=== PATIENT | male | born 1965 | race African-American/Black ===

== ENCOUNTER 2017-03-25 12:04 | Emergency (ER) | payer MEDICAID ==
[~2017-03-25] VITALS: Ht 167.6 cm; Wt 65.0 kg
[2017-03-25 13:45] VITALS: BP 154/89
== END 2017-03-25 13:53 | disposition home or self-care (01) ==
LOC: ER 12:06
DX: R53.1 Weakness (principal); F32.9 Major depressive disorder, single episode, unspecified
CPT/HCPCS: 99283

== ENCOUNTER 2017-07-11 03:28 | Emergency (ER) | payer MEDICAID ==
[~2017-07-11] VITALS: Ht 157.5 cm; Wt 54.0 kg
[2017-07-11 05:04] VITALS: BP 135/71
== END 2017-07-11 05:15 | disposition home or self-care (01) ==
LOC: ER 03:34
DX: T51.91XA Toxic effect of unspecified alcohol, accidental (unintentional), initial encounter (principal); F31.9 Bipolar disorder, unspecified; Y92.89 Other specified places as the place of occurrence of the external cause
CPT/HCPCS: 99283; J7030; Z7610

== ENCOUNTER 2018-03-24 07:12 | Emergency (ER) | payer MEDICAID ==
[~2018-03-24] VITALS: Ht 157.5 cm; Wt 55.0 kg
[2018-03-24] MEDS ORDERED: MORPHINE SULFATE 10 MG/ML CPJ IM ONE (09:30)
[2018-03-24] MEDS ORDERED: ONDANSETRON 4MG ODT PO ONE (09:30)
[2018-03-24] MEDS ORDERED: BACITRACIN ZINC OINT UDPKT TOP ONE (09:30)
[2018-03-24 12:06] VITALS: BP 158/92
[2018-03-24] MEDS ORDERED: ACETAMINOPHEN 500MG TABLET PO ONE (12:15)
== END 2018-03-24 12:17 | disposition home or self-care (01) ==
LOC: ER 11:20
DX: S80.212A Abrasion, left knee, initial encounter (principal); F17.200 Nicotine dependence, unspecified, uncomplicated; F31.9 Bipolar disorder, unspecified; F12.10 Cannabis abuse, uncomplicated; W18.39XA Other fall on same level, initial encounter; Y93.89 Activity, other specified; Y92.89 Other specified places as the place of occurrence of the external cause; Y99.8 Other external cause status; Z98.890 Other specified postprocedural states
CPT/HCPCS: 73562; 96372; 99284; J2270; Q0162

== ENCOUNTER 2019-06-15 20:20 | Emergency (ER) | payer MEDICAID ==
[~2019-06-15] VITALS: Ht 175.3 cm; Wt 65.0 kg
[2019-06-15 23:27] VITALS: BP 112/79
== END 2019-06-15 23:28 | disposition home or self-care (01) ==
LOC: ER 20:20
DX: R05 Cough (principal); R09.81 Nasal congestion; F12.10 Cannabis abuse, uncomplicated; Z98.890 Other specified postprocedural states
CPT/HCPCS: 71045; 99283

== ENCOUNTER 2019-10-28 19:34 | Emergency (ER) | payer MEDICAID ==
[~2019-10-28] VITALS: Ht 157.5 cm; Wt 55.0 kg
[2019-10-28] MEDS ORDERED: HYDROCODONE/ACETAMINOPHEN 5/325MG TABLET PO ONE (22:00)
[2019-10-28 23:59] VITALS: BP 141/84
== END 2019-10-29 00:06 | disposition home or self-care (01) ==
LOC: ER 19:34
DX: S01.511A Laceration without foreign body of lip, initial encounter (principal); F12.10 Cannabis abuse, uncomplicated; X58.XXXA Exposure to other specified factors, initial encounter; Y93.89 Activity, other specified; Y92.89 Other specified places as the place of occurrence of the external cause; Y99.8 Other external cause status
CPT/HCPCS: 70486; 73130; 99285

== ENCOUNTER 2019-11-20 14:40 | Inpatient (IN) | payer MEDICAID ==
[~2019-11-20] VITALS: Ht 157.5 cm; Wt 54.0 kg
[2019-11-20] MEDS ORDERED: ONDANSETRON HCL 4MG/2ML INJ IV STA (14:59)
[2019-11-20] MEDS ORDERED: MORPHINE SULFATE 4 MG/ML CPJ (NOT FOR IM USE) IV STA (14:59)
[2019-11-20] MEDS ORDERED: SODIUM CHLORIDE 0.9% 1,000 ML IV ONE (14:59)
[2019-11-20] MEDS ORDERED: TETANUS, DIPHTHERIA, PERTUSSIS VAC/PF 0.5ML (>7YR OLD) IM ONE (15:00)
[2019-11-20] MEDS ORDERED: ETOMIDATE 2MG/ML 10ML VIAL IV ONE (15:45)
[2019-11-20 15:59] LABS: BASOPHILS % 0.3 % (0.0-2.0); EOSINOPHILS % 3.3 % (0.0-5.0); HEMATOCRIT. 35.1 % (42.0-52.0); HEMOGLOBIN. 12.4 g/dL (14.0-18.0); LYMPHOCYTES % 20.3 % (20.0-50.0); MEAN CORPUSCULAR HEMOGLOBIN 35.6 pg (28.0-32.0); MEAN CORPUSCULAR VOLUME 100.8 fL (80.0-94.0); MEAN PLATELET VOLUME 7.3 fl (7.4-10.4); NEUTROPHILS % 65.1 % (40.0-76.0); PLATELET 299 x1000/uL (130-400); RED BLOOD CELL COUNT 3.48 mill/uL (4.7-6.1); RED CELL DISTRIBUTION WIDTH 15.2 % (11.6-14.6)
[2019-11-20 16:04] LABS: CHLORIDE 106 mEq/L (98-107)
[2019-11-20 16:08] LABS: INR 1.1; PARTIAL THROMBOPLASTIN TIME 25.9 sec (23.4-31.0); PROTHROMBIN TIME 11.1 sec (9.6-11.0)
[2019-11-20] MEDS ORDERED: MORPHINE SULFATE 4 MG/ML CPJ (NOT FOR IM USE) IV ONE (18:00)
[2019-11-20] MEDS ORDERED: CLONIDINE 0.1MG TABLET PO PRN (18:15)
[2019-11-20] MEDS ORDERED: ONDANSETRON HCL 4MG/2ML INJ IV PRN (18:15)
[2019-11-20] MEDS ORDERED: ZOLPIDEM TARTRATE 5MG TABLET PO PRN (18:15)
[2019-11-20] MEDS: AMLODIPINE 5MG TABLET PO SCH (21:20)
[2019-11-21 00:21] LABS: *AMPHETAMINES SCREEN URINE NEGATIVE (NEGATIVE); *BARBITURATES SCREEN URINE NEGATIVE (NEGATIVE); *BENZODIAZEPINES SCREEN URINE NEGATIVE (NEGATIVE); *COCAINE SCREEN URINE PRESUMTIVE POSITIVE (NEGATIVE)
[2019-11-21 00:22] LABS: CANNABINOID URINE SCREEN PRESUMTIVE POSITIVE (NEGATIVE); METHADONE URINE SCREEN NEGATIVE (NEGATIVE); OPIATES URINE SCREEN PRESUMTIVE POSITIVE (NEGATIVE); PHENCYCLIDINE URINE SCREEN PRESUMTIVE POSITIVE (NEGATIVE)
[2019-11-21] MEDS: MORPHINE SULFATE 2 MG/ML CPJ (NOT FOR IM USE) IV PRN ×5 (02:26→21:05)
[2019-11-21 09:45] VITALS: BP 147/87
[2019-11-21] MEDS: AMLODIPINE 5MG TABLET PO SCH ×2 (10:53→21:07)
[2019-11-21] MEDS ORDERED: IBUP-2029 PO (10:54)
[2019-11-21 12:00] VITALS: BP 150/93
[2019-11-21] MEDS: LISINOPRIL 5MG TABLET PO SCH (14:23)
[2019-11-21 16:00] VITALS: BP 134/83
[2019-11-21 18:35] VITALS: BP 126/74
[2019-11-21 20:00] VITALS: BP 130/83
[2019-11-21] MEDS ORDERED: ENOXAPARIN 40MG/0.4ML SYR SUBCUT SCH (20:00)
[2019-11-22] VITALS: BP 130/82
[2019-11-22] MEDS: MORPHINE SULFATE 2 MG/ML CPJ (NOT FOR IM USE) IV PRN ×2 (01:20→20:57)
[2019-11-22 04:00] VITALS: BP 107/66
[2019-11-22 08:00] VITALS: BP 134/85
[2019-11-22] MEDS: LISINOPRIL 5MG TABLET PO SCH (09:04)
[2019-11-22] MEDS: AMLODIPINE 5MG TABLET PO SCH ×2 (09:05→20:56)
[2019-11-22] MEDS: POLYETHYLENE GLYCOL 3350 (17GM) 1 DOSE PACK PO SCH (10:48)
[2019-11-22 12:00] VITALS: BP 133/87
[2019-11-22 16:00] VITALS: BP 117/80
[2019-11-22 20:00] VITALS: BP 139/79
[2019-11-23] VITALS: BP 118/76
[2019-11-23 04:00] VITALS: BP 120/74
[2019-11-23 06:48] LABS: HEMATOCRIT. 34.3 % (42.0-52.0); HEMOGLOBIN. 11.8 g/dL (14.0-18.0); MEAN CORPUSCULAR HEMOGLOBIN 34.1 pg (28.0-32.0); MEAN CORPUSCULAR VOLUME 99.1 fL (80.0-94.0); MEAN PLATELET VOLUME 7.1 fl (7.4-10.4); PLATELET 386 x1000/uL (130-400); RED BLOOD CELL COUNT 3.46 mill/uL (4.7-6.1); RED CELL DISTRIBUTION WIDTH 14.9 % (11.6-14.6)
[2019-11-23 07:18] LABS: CHLORIDE 99 mEq/L (98-107)
[2019-11-23 07:58] LABS: VITAMIN B12 SERUM 330 pg/mL (211-911)
[2019-11-23 08:00] VITALS: BP_SYST 129; BP_DIAS 68; BP_DIAS 86
[2019-11-23] MEDS: POLYETHYLENE GLYCOL 3350 (17GM) 1 DOSE PACK PO SCH (08:36)
[2019-11-23] MEDS: MORPHINE SULFATE 2 MG/ML CPJ (NOT FOR IM USE) IV PRN ×2 (08:37→18:43)
[2019-11-23] MEDS: LISINOPRIL 5MG TABLET PO SCH (08:41)
[2019-11-23] MEDS: AMLODIPINE 5MG TABLET PO SCH ×2 (08:41→20:39)
[2019-11-23 10:25] LABS: PLATELET ESTIMATE NORMAL
[2019-11-23 12:00] VITALS: BP 128/72
[2019-11-23 13:09] LABS: FOLIC ACID (FOLATE) SERUM 13.4 ng/mL (>5.38)
[2019-11-23] MEDS: CYANOCOBALAMIN 1000MCG/ML VIAL IM SCH (13:27)
[2019-11-23 16:00] VITALS: BP 128/82
[2019-11-23 20:00] VITALS: BP 113/77
[2019-11-24 08:00] VITALS: BP 105/72
[2019-11-24] MEDS: AMLODIPINE 5MG TABLET PO SCH ×2 (09:00→21:12)
[2019-11-24] MEDS: LISINOPRIL 5MG TABLET PO SCH (09:00)
[2019-11-24] MEDS: POLYETHYLENE GLYCOL 3350 (17GM) 1 DOSE PACK PO SCH (09:19)
[2019-11-24] MEDS: CYANOCOBALAMIN 1000MCG/ML VIAL IM SCH (09:19)
[2019-11-24] MEDS: MORPHINE SULFATE 2 MG/ML CPJ (NOT FOR IM USE) IV PRN (09:41)
[2019-11-24 16:00] VITALS: BP 133/80
[2019-11-24 20:00] VITALS: BP 137/78
[2019-11-24] MEDS: ACETAMINOPHEN 325MG TABLET PO PRN (21:24)
[2019-11-25] VITALS: BP 97/58
[2019-11-25 04:00] VITALS: BP 104/68
[2019-11-25] MEDS: ACETAMINOPHEN 325MG TABLET PO PRN (04:45)
[2019-11-25 08:00] VITALS: BP 129/80
[2019-11-25] MEDS: POLYETHYLENE GLYCOL 3350 (17GM) 1 DOSE PACK PO SCH (09:00)
[2019-11-25] MEDS: LISINOPRIL 5MG TABLET PO SCH (09:12)
[2019-11-25] MEDS: AMLODIPINE 5MG TABLET PO SCH ×2 (09:12→22:24)
[2019-11-25] MEDS: MORPHINE SULFATE 2 MG/ML CPJ (NOT FOR IM USE) IV PRN (09:26)
[2019-11-25 12:00] VITALS: BP 102/70
[2019-11-25] MEDS ORDERED: BUPIVACAINE/EPINEPH/PF 0.25%/0.0005 10ML ONE (12:33)
[2019-11-25] MEDS ORDERED: BACITRACIN 50,000 UNITS/VIAL ONE (12:33)
[2019-11-25] MEDS ORDERED: VANCOMYCIN HCL 1 GM/VIAL ONE (13:11)
[2019-11-25] MEDS ORDERED: MORPHINE SULFATE/PF 1MG/ML 10ML AMP ONE (13:38)
[2019-11-25] MEDS ORDERED: CEFAZOLIN SODIUM 1000MG/VIAL ONE (13:51)
[2019-11-25] MEDS ORDERED: HYDROCORTISONE SOD SUCCINATE 100 MG/2 ML VIAL ONE (13:52)
[2019-11-25] MEDS ORDERED: EPINEPHRINE 1:1000 1 MG/ML AMP ONE (14:01)
[2019-11-25] MEDS ORDERED: LABETALOL 5MG/ML SYR 20 MG/4 ML SYRINGE IV PRN (15:30)
[2019-11-25] MEDS ORDERED: MEPERIDINE HCL/PF 25MG/ML CPJ IV PRN (15:30)
[2019-11-25] MEDS ORDERED: HYDROMORPHONE HCL/PF 2MG/ML CPJ IV PRN (15:30)
[2019-11-25] MEDS ORDERED: ONDANSETRON HCL 4MG/2ML INJ IV PRN (15:30)
[2019-11-25 16:00] VITALS: BP 111/59
[2019-11-25 20:00] VITALS: BP 98/71
[2019-11-25] MEDS: CEFAZOLIN 2,000 MG in DEXT 5% WATER 100 ML IV SCH (22:24)
[2019-11-26 04:00] VITALS: BP 136/96
[2019-11-26] MEDS: HYDROCODONE/ACETAMINOPHEN 5/325MG TABLET PO PRN ×4 (05:58→20:59)
[2019-11-26] MEDS: CEFAZOLIN 2,000 MG in DEXT 5% WATER 100 ML IV SCH ×3 (06:05→21:06)
[2019-11-26 06:57] LABS: CHLORIDE 93 mEq/L (98-107)
[2019-11-26 08:00] VITALS: BP 133/79
[2019-11-26 08:16] LABS: BASOPHILS % 0.6 % (0.0-2.0); EOSINOPHILS % 0.4 % (0.0-5.0); HEMOGLOBIN. 10.2 g/dL (14.0-18.0); LYMPHOCYTES % 10.4 % (20.0-50.0); MEAN CORPUSCULAR VOLUME 99.3 fL (80.0-94.0); MEAN PLATELET VOLUME 7.4 fl (7.4-10.4); MONOCYTES % 11.9 % (2.0-8.0); NEUTROPHILS % 76.7 % (40.0-76.0); PLATELET 461 x1000/uL (130-400); RED BLOOD CELL COUNT 3.02 mill/uL (4.7-6.1); RED CELL DISTRIBUTION WIDTH 14.8 % (11.6-14.6)
[2019-11-26] MEDS: POLYETHYLENE GLYCOL 3350 (17GM) 1 DOSE PACK PO SCH (09:00)
[2019-11-26] MEDS: LISINOPRIL 5MG TABLET PO SCH (09:04)
[2019-11-26] MEDS: AMLODIPINE 5MG TABLET PO SCH ×2 (09:04→20:57)
[2019-11-26 12:00] VITALS: BP 119/76
[2019-11-26] MEDS ORDERED: DIPHENHYDRAMINE 50MG/ML VIAL IV PRN (13:45)
[2019-11-26 16:00] VITALS: BP 132/84
[2019-11-26 20:00] VITALS: BP_SYST 122; BP_DIAS 67; BP_DIAS 80
[2019-11-27 04:00] VITALS: BP 131/89
[2019-11-27] MEDS: HYDROCODONE/ACETAMINOPHEN 5/325MG TABLET PO PRN ×4 (05:04→21:00)
[2019-11-27] MEDS: CEFAZOLIN 2,000 MG in DEXT 5% WATER 100 ML IV SCH ×3 (05:05→21:00)
[2019-11-27 06:52] LABS: BASOPHILS % 0.7 % (0.0-2.0); EOSINOPHILS % 0.7 % (0.0-5.0); HEMATOCRIT. 30.3 % (42.0-52.0); HEMOGLOBIN. 10.7 g/dL (14.0-18.0); LYMPHOCYTES % 8.2 % (20.0-50.0); MEAN CORPUSCULAR HEMOGLOBIN 34.8 pg (28.0-32.0); MEAN CORPUSCULAR VOLUME 98.5 fL (80.0-94.0); MEAN PLATELET VOLUME 7.3 fl (7.4-10.4); MONOCYTES % 10.8 % (2.0-8.0); NEUTROPHILS % 79.6 % (40.0-76.0); PLATELET 532 x1000/uL (130-400); RED BLOOD CELL COUNT 3.08 mill/uL (4.7-6.1); RED CELL DISTRIBUTION WIDTH 14.3 % (11.6-14.6)
[2019-11-27 06:55] LABS: CHLORIDE 96 mEq/L (98-107)
[2019-11-27 08:00] VITALS: BP 130/73
[2019-11-27] MEDS: LISINOPRIL 5MG TABLET PO SCH (08:58)
[2019-11-27] MEDS: POLYETHYLENE GLYCOL 3350 (17GM) 1 DOSE PACK PO SCH ×2 (08:59→09:00)
[2019-11-27] MEDS: AMLODIPINE 5MG TABLET PO SCH ×2 (08:59→21:00)
[2019-11-27] MEDS: ENOXAPARIN 40MG/0.4ML SYR SUBCUT SCH (11:16)
[2019-11-27 12:00] VITALS: BP 114/81
[2019-11-27 16:00] VITALS: BP 119/69
[2019-11-27 20:00] VITALS: BP 117/75
[2019-11-28] VITALS: BP 102/75
[2019-11-28 04:00] VITALS: BP 129/68
[2019-11-28] MEDS: HYDROCODONE/ACETAMINOPHEN 5/325MG TABLET PO PRN ×4 (05:26→21:50)
[2019-11-28 08:00] VITALS: BP 114/67
[2019-11-28] MEDS: POLYETHYLENE GLYCOL 3350 (17GM) 1 DOSE PACK PO SCH (09:00)
[2019-11-28] MEDS: LISINOPRIL 5MG TABLET PO SCH (09:27)
[2019-11-28] MEDS: AMLODIPINE 5MG TABLET PO SCH ×2 (09:27→21:00)
[2019-11-28] MEDS: ENOXAPARIN 40MG/0.4ML SYR SUBCUT SCH (09:28)
[2019-11-28 09:44] LABS: BASOPHILS % 0.9 % (0.0-2.0); EOSINOPHILS % 1.4 % (0.0-5.0); HEMATOCRIT. 33.4 % (42.0-52.0); HEMOGLOBIN. 11.4 g/dL (14.0-18.0); LYMPHOCYTES % 14.6 % (20.0-50.0); MEAN CORPUSCULAR HEMOGLOBIN 34.3 pg (28.0-32.0); MEAN PLATELET VOLUME 6.9 fl (7.4-10.4); MONOCYTES % 7.1 % (2.0-8.0); PLATELET 604 x1000/uL (130-400); RED BLOOD CELL COUNT 3.34 mill/uL (4.7-6.1); RED CELL DISTRIBUTION WIDTH 14.5 % (11.6-14.6)
[2019-11-28 09:50] LABS: CHLORIDE 97 mEq/L (98-107)
[2019-11-28 12:00] VITALS: BP 113/73
[2019-11-28 16:00] VITALS: BP 119/86
[2019-11-28 20:00] VITALS: BP 98/66
[2019-11-29] VITALS: BP 116/76
[2019-11-29] MEDS: HYDROMORPHONE HCL/PF 2MG/ML CPJ IM PRN ×2 (03:40→12:17)
[2019-11-29 04:00] VITALS: BP 114/73
[2019-11-29 08:00] VITALS: BP 121/60
[2019-11-29] MEDS: ENOXAPARIN 40MG/0.4ML SYR SUBCUT SCH (09:11)
[2019-11-29] MEDS: AMLODIPINE 5MG TABLET PO SCH ×2 (09:11→21:33)
[2019-11-29] MEDS: LISINOPRIL 5MG TABLET PO SCH (09:11)
[2019-11-29] MEDS: POLYETHYLENE GLYCOL 3350 (17GM) 1 DOSE PACK PO SCH (09:11)
[2019-11-29] MEDS: HYDROCODONE/ACETAMINOPHEN 5/325MG TABLET PO PRN ×2 (09:12→19:49)
[2019-11-29 16:00] VITALS: BP 112/74
[2019-11-29 20:00] VITALS: BP 126/75
[2019-11-30] VITALS: BP 127/80
[2019-11-30] MEDS: HYDROCODONE/ACETAMINOPHEN 5/325MG TABLET PO PRN ×4 (00:34→21:58)
[2019-11-30 04:00] VITALS: BP 120/75
[2019-11-30 08:00] VITALS: BP 124/76
[2019-11-30] MEDS: AMLODIPINE 5MG TABLET PO SCH ×2 (08:59→21:56)
[2019-11-30] MEDS: LISINOPRIL 5MG TABLET PO SCH (08:59)
[2019-11-30] MEDS: POLYETHYLENE GLYCOL 3350 (17GM) 1 DOSE PACK PO SCH (09:00)
[2019-11-30] MEDS: ENOXAPARIN 40MG/0.4ML SYR SUBCUT SCH (09:00)
[2019-11-30 12:00] VITALS: BP 117/45
[2019-11-30 16:00] VITALS: BP 120/77
[2019-11-30] MEDS ORDERED: HYDROMORPHONE HCL/PF 2MG/ML CPJ IM PRN (16:15)
[2019-11-30 20:00] VITALS: BP 128/80
[2019-12-01] VITALS: BP 120/76
[2019-12-01 04:00] VITALS: BP 138/88
[2019-12-01] MEDS: HYDROCODONE/ACETAMINOPHEN 5/325MG TABLET PO PRN ×2 (05:48→10:42)
[2019-12-01 08:00] VITALS: BP 132/78
[2019-12-01] MEDS: POLYETHYLENE GLYCOL 3350 (17GM) 1 DOSE PACK PO SCH (09:00)
[2019-12-01] MEDS: ENOXAPARIN 40MG/0.4ML SYR SUBCUT SCH (09:18)
[2019-12-01] MEDS: AMLODIPINE 5MG TABLET PO SCH (09:18)
[2019-12-01] MEDS: LISINOPRIL 5MG TABLET PO SCH (09:18)
[2019-12-01] MEDS ORDERED: HYDR-4001 MT (10:39)
[2019-12-01] MEDS ORDERED: AMLO5TAB88 PO (10:39)
[2019-12-01 12:00] VITALS: BP 127/76
[2019-12-01 16:00] VITALS: BP 124/78
== END 2019-12-01 17:25 | disposition left against medical advice (07) | DRG 313 ==
LOC: ER 14:40 → MICUSO 17:09 → EDBEDREQ 17:14 → 6EST 11-21 08:34
PROVIDERS: ADMIT Internal Medicine; ATTEND Internal Medicine
PROC: 0QSH04Z Reposition Left Tibia with Internal Fixation Device, Open Approach (ICD-10-PCS; principal; 2019-11-25)
PROC: 0QSK35Z Reposition Left Fibula with External Fixation Device, Percutaneous Approach (ICD-10-PCS; 2019-11-25)
DX: S82.852A Displaced trimalleolar fracture of left lower leg, initial encounter for closed fracture (principal); S92.312A Displaced fracture of first metatarsal bone, left foot, initial encounter for closed fracture; I10 Essential (primary) hypertension; J44.9 Chronic obstructive pulmonary disease, unspecified; F31.9 Bipolar disorder, unspecified; D64.9 Anemia, unspecified; S92.325A Nondisplaced fracture of second metatarsal bone, left foot, initial encounter for closed fracture; S92.335A Nondisplaced fracture of third metatarsal bone, left foot, initial encounter for closed fracture; F12.10 Cannabis abuse, uncomplicated; F14.10 Cocaine abuse, uncomplicated; F17.210 Nicotine dependence, cigarettes, uncomplicated; Z20.828 Contact with and (suspected) exposure to other viral communicable diseases; Z53.29 Procedure and treatment not carried out because of patient's decision for other reasons; Z86.73 Personal history of transient ischemic attack (TIA), and cerebral infarction without residual deficits; V03.10XA Pedestrian on foot injured in collision with car, pick-up truck or van in traffic accident, initial encounter; Z71.51 Drug abuse counseling and surveillance of drug abuser; Y92.410 Unspecified street and highway as the place of occurrence of the external cause; Z59.0 Homelessness; Y93.89 Activity, other specified; Y99.8 Other external cause status
CPT/HCPCS: 36415; 73600; 73610; 73630; 73700; 76000; 80048; 80305; 82607; 82746; 85025; 90715; 93005; 93306; 93970; 97116; 97162; 97530; 99285; J0171; J0690; J1170; J1200; J1650; J1720; J2270; J2274; J2405; J3370; J3420; J3490; J7030; J7060; U0003-CS

== ENCOUNTER 2019-12-31 08:01 | Emergency (ER) | payer MEDICAID ==
[~2019-12-31] VITALS: Ht 157.5 cm; Wt 54.0 kg
[~2019-12-31 08:01] MED LIST: AMLO5TAB88 PO; HYDR-4001 MT; IBUP-2029 PO
[2019-12-31 08:04] VITALS: BP 113/85
== END 2019-12-31 09:41 | disposition home or self-care (01) ==
LOC: ER 08:01
DX: Z48.02 Encounter for removal of sutures (principal)
CPT/HCPCS: 99281

== ENCOUNTER 2021-09-19 14:52 | Emergency (ER) | payer MEDICAID ==
[~2021-09-19] VITALS: Ht 157.5 cm; Wt 55.0 kg
[2021-09-19 15:24] VITALS: BP 164/93
[2021-09-19] MEDS ORDERED: AMOX-424 MT (17:07)
== END 2021-09-19 18:21 | disposition home or self-care (01) ==
LOC: ER 14:52
DX: Z48.00 Encounter for change or removal of nonsurgical wound dressing (principal)
CPT/HCPCS: 99283

== ENCOUNTER 2022-03-28 11:59 | Emergency (ER) | payer MEDICAID ==
[~2022-03-28] VITALS: Ht 162.6 cm; Wt 60.0 kg
[~2022-03-28 11:59] MED LIST changes: +AMOX-424 MT
[2022-03-28 13:19] LABS: BASOPHILS % 0.4 % (0.0-2.0); EOSINOPHILS % 0.5 % (0.0-5.0); HEMATOCRIT. 26.6 % (42.0-52.0); HEMOGLOBIN. 9.2 g/dL (14.0-18.0); LYMPHOCYTES % 13.9 % (20.0-50.0); MEAN CORPUSCULAR HEMOGLOBIN 33.5 pg (28.0-32.0); MEAN CORPUSCULAR VOLUME 97.3 fL (80.0-94.0); MEAN PLATELET VOLUME 8.2 fl (7.4-10.4); MONOCYTES % 4.5 % (2.0-8.0); NEUTROPHILS % 80.7 % (40.0-76.0); PLATELET 180 x1000/uL (130-400); RED BLOOD CELL COUNT 2.74 mill/uL (4.7-6.1); RED CELL DISTRIBUTION WIDTH 14.9 % (11.6-14.6)
[2022-03-28 13:26] LABS: CHLORIDE 102 mEq/L (98-107); INR 1.1; PROTHROMBIN TIME 11.5 sec (9.6-11.0)
[2022-03-28 13:40] LABS: ETHANOL BLOOD < 10 mg/dL
[2022-03-28] MEDS ORDERED: SILVER NITRATE APPLICATOR STICK TOP ONE (14:15)
[2022-03-28 15:34] LABS: CLARITY URINE CLEAR (CLEAR); COLOR URINE YELLOW (YELLOW); KETONES URINE NEGATIVE (NEGATIVE); LEUKOCYTE ESTERASE URINE NEGATIVE (NEGATIVE); NITRITE URINE NEGATIVE (NEGATIVE); OCCULT BLOOD URINE NEGATIVE (NEGATIVE); PH URINE 6.5 (4.5-8.0); PROTEIN URINE TRACE (NEGATIVE); SPECIFIC GRAVITY URINE 1.028 (1.005-1.030)
[2022-03-28 16:05] LABS: *AMPHETAMINES SCREEN URINE NEGATIVE (NEGATIVE); *BARBITURATES SCREEN URINE NEGATIVE (NEGATIVE); *BENZODIAZEPINES SCREEN URINE NEGATIVE (NEGATIVE); *COCAINE SCREEN URINE PRESUMTIVE POSITIVE (NEGATIVE); CANNABINOID URINE SCREEN PRESUMTIVE POSITIVE (NEGATIVE); METHADONE URINE SCREEN NEGATIVE (NEGATIVE); OPIATES URINE SCREEN NEGATIVE (NEGATIVE); PHENCYCLIDINE URINE SCREEN NEGATIVE (NEGATIVE)
[2022-03-28 19:45] VITALS: BP 115/75
== END 2022-03-28 19:55 | disposition home or self-care (01) ==
LOC: ER 11:59
DX: R04.0 Epistaxis (principal); Z00.00 Encounter for general adult medical examination without abnormal findings; F17.290 Nicotine dependence, other tobacco product, uncomplicated; F12.10 Cannabis abuse, uncomplicated; Z79.899 Other long term (current) drug therapy
CPT/HCPCS: 36415; 80053; 80305; 80320; 81003; 82270; 85025; 86850; 86900; 99283; G0480

== ENCOUNTER 2024-01-18 04:26 | Emergency (ER) | payer MEDICAID, OTHER ==
[~2024-01-18] VITALS: Ht 165.1 cm; Wt 60.0 kg
[2024-01-18 04:54] VITALS: O2SAT 100
[2024-01-18] MEDS ORDERED: MAG355OR21 MT (05:37)
[2024-01-18] MEDS ORDERED: ACET-2708 MT (05:37)
[2024-01-18] MEDS: ACETAMINOPHEN 325MG TABLET PO ONE (05:51)
[2024-01-18] MEDS: GUAIFENESIN 600MG ER TABLET PO SCH (05:51)
[2024-01-18] MEDS: VISCOUS LIDOCAINE 2% 15 ML UDC MM NR (05:52)
[2024-01-18 06:00] VITALS: BP 135/78; PULSE 66; RESP 20; O2SAT 100
== END 2024-01-18 06:00 | disposition home or self-care (01) ==
LOC: ER 04:26
DX: J31.2 Chronic pharyngitis (principal); F12.10 Cannabis abuse, uncomplicated; Z79.899 Other long term (current) drug therapy; Z72.0 Tobacco use; Z00.00 Encounter for general adult medical examination without abnormal findings
CPT/HCPCS: 99283

== ENCOUNTER 2024-01-31 13:08 | Inpatient (IN) | payer OTHER ==
[~2024-01-31] VITALS: Ht 157.5 cm; Wt 56.2 kg
[~2024-01-31 13:08] MED LIST changes: +ACET-2708 MT; +MAG355OR21 MT
[2024-01-31] MEDS ORDERED: KETOROLAC 30MG/ML VIAL IM STA (14:17)
[2024-01-31 16:10] LABS: HEMATOCRIT. 42.4 % (42.0-52.0); HEMOGLOBIN. 14.1 g/dL (14.0-18.0); MEAN CORPUSCULAR HEMOGLOBIN 31.7 pg (28.0-32.0); MEAN CORPUSCULAR HGB CONC 33.1 g/dL (31.0-37.0); MEAN CORPUSCULAR VOLUME 95.7 fL (80.0-94.0); MEAN PLATELET VOLUME 7.3 fl (7.4-10.4); PLATELET 364 x1000/uL (130-400); RED BLOOD CELL COUNT 4.43 mill/uL (4.7-6.1); RED CELL DISTRIBUTION WIDTH 17.1 % (11.6-14.6); WHITE BLOOD COUNT 24.6 x1000/uL (4.5-11.0)
[2024-01-31 16:14] LABS: DIFFERENTIAL COMMENT 1
[2024-01-31 16:15] LABS: CHLORIDE 101 mEq/L (98-107); POTASSIUM 3.6 mEq/L (3.5-5.1); SODIUM 135 mEq/L (136-145)
[2024-01-31 16:16] LABS: CARBON DIOXIDE 25 mEq/L (21-32)
[2024-01-31 16:17] LABS: CALCIUM 10.3 mg/dL (8.7-10.4)
[2024-01-31 16:21] LABS: CREATININE 0.8 mg/dL (0.6-1.3); GLUCOSE 99 mg/dL (70-105)
[2024-01-31 16:22] LABS: UREA NITROGEN BLOOD 10 mg/dL (9-23)
[2024-01-31] MEDS: MORPHINE SULFATE 4 MG/ML INJ (FOR IV/IM USE) IM ONE (16:22)
[2024-01-31 16:23] LABS: ALANINE AMINOTRANSFERASE 8 IU/L (10-49); ALBUMIN 5.1 g/dL (3.2-4.8); ASPARTATE AMINOTRANSFERASE 11 IU/L (<34)
[2024-01-31 16:24] LABS: BILIRUBIN DIRECT 0.1 mg/dL (<=3.0); BILIRUBIN TOTAL 0.5 mg/dL (0.1-1.0); PROTEIN TOTAL 8.1 g/dL (6.0-8.3)
[2024-01-31] MEDS: KETOROLAC 30MG/ML VIAL IM NR (16:24)
[2024-01-31] MEDS: SODIUM CHLORIDE 0.9% 1000ML BAG (SEPSIS BOLUS) IV ONE (16:43)
[2024-01-31] MEDS: CEFTRIAXONE 2GM/50ML 50 ML IV ONE (16:53)
[2024-01-31 16:56] LABS: PLATELET ESTIMATE NORMAL
[2024-01-31] MEDS ORDERED: DOCUSATE SODIUM 100MG CAPSULE PO PRN (20:15)
[2024-01-31] MEDS ORDERED: GUAIFENESIN 200MG/10ML SUGAR FREE UDC PO PRN (20:15)
[2024-01-31] MEDS ORDERED: ACETAMINOPHEN 325MG TABLET PO PRN ×2 (20:15)
[2024-01-31] MEDS ORDERED: MAGNESIUM/ALUMINUM HYDROXIDE/SIMETHICONE 30ML UDC PO PRN (20:15)
[2024-01-31] MEDS ORDERED: LEVOFLOXACIN 500MG PREMIX 100 ML IV SCH (20:15)
[2024-01-31] MEDS ORDERED: ONDANSETRON HCL 4MG/2ML INJ IV PRN (20:15)
[2024-01-31] MEDS ORDERED: CLONIDINE 0.1MG TABLET PO PRN (20:15)
[2024-01-31] MEDS: SODIUM CHLORIDE 0.9% 1,000 ML IV SCH (22:25)
[2024-01-31] MEDS ORDERED: IOHEXOL-300 100 ML BOTTLE ONE (23:28)
[2024-02-01] VITALS: BP 130/70; PULSE 62; RESP 16; TEMP 36.9474; O2SAT 99
[2024-02-01] MEDS: CEFTRIAXONE 1GM/50ML 50 ML IV SCH (01:20)
[2024-02-01 07:31] LABS: BASOPHILS % 0.5 % (0.0-2.0); EOSINOPHILS % 2.3 % (0.0-5.0); HEMATOCRIT. 32.8 % (42.0-52.0); HEMOGLOBIN. 11.2 g/dL (14.0-18.0); MEAN CORPUSCULAR HEMOGLOBIN 32.2 pg (28.0-32.0); MEAN CORPUSCULAR HGB CONC 34.1 g/dL (31.0-37.0); MEAN CORPUSCULAR VOLUME 94.6 fL (80.0-94.0); MEAN PLATELET VOLUME 8.3 fl (7.4-10.4); MONOCYTES % 8.3 % (2.0-8.0); NEUTROPHILS % 79.9 % (40.0-76.0); PLATELET 338 x1000/uL (130-400); RED BLOOD CELL COUNT 3.47 mill/uL (4.7-6.1); RED CELL DISTRIBUTION WIDTH 17.4 % (11.6-14.6)
[2024-02-01 07:39] LABS: CARBON DIOXIDE 23 mEq/L (21-32); CHLORIDE 104 mEq/L (98-107); POTASSIUM 3.3 mEq/L (3.5-5.1); SODIUM 133 mEq/L (136-145)
[2024-02-01 07:40] LABS: CALCIUM 8.7 mg/dL (8.7-10.4)
[2024-02-01 07:45] LABS: GLUCOSE 100 mg/dL (70-105); TRIGLYCERIDE 90 mg/dL (0-150)
[2024-02-01 07:46] LABS: LDL CHOLESTEROL 95 mg/dL (5-100)
[2024-02-01 07:47] LABS: CHOLESTEROL 136 mg/dL (<200); HDL CHOLESTEROL 29 mg/dL (>55)
[2024-02-01 07:51] LABS: T4 FREE 1.06 ng/dL (0.89-1.76); THYROID STIMULATING HORMONE 1.33 uIU/mL (0.55-4.78)
[2024-02-01 07:54] LABS: CREATININE 0.5 mg/dL (0.6-1.3); UREA NITROGEN BLOOD < 5 mg/dL (9-23)
[2024-02-01 09:57] VITALS: BP 133/72; PULSE 80; RESP 20; TEMP 36.6696; O2SAT 100
[2024-02-01] MEDS: ENOXAPARIN 40MG/0.4ML SYR SUBCUT SCH (10:17)
[2024-02-01] MEDS: PANTOPRAZOLE SODIUM 40 MG/VIAL IV SCH (10:17)
[2024-02-01 12:34] VITALS: BP 136/77; PULSE 67; RESP 20; TEMP 36.6696; O2SAT 100
[2024-02-01] MEDS: KETOROLAC 15MG/ML VIAL IV PRN (14:39)
[2024-02-01 15:46] VITALS: BP 138/70; PULSE 69; RESP 20; TEMP 36.7516
[2024-02-01 16:00] VITALS: BP 121/82; PULSE 66; RESP 20; TEMP 36.114; O2SAT 100
[2024-02-01 20:00] VITALS: BP 151/66; PULSE 74; RESP 18; TEMP 36.61404; O2SAT 99
[2024-02-01] MEDS: POTASSIUM CHLORIDE 20MEQ/PACKET PO NR (20:47)
[2024-02-01 21:59] LABS: *AMPHETAMINES SCREEN URINE NEGATIVE (NEGATIVE); *BARBITURATES SCREEN URINE NEGATIVE (NEGATIVE); *BENZODIAZEPINES SCREEN URINE NEGATIVE (NEGATIVE); *COCAINE SCREEN URINE NEGATIVE (NEGATIVE)
[2024-02-01 22:00] LABS: CANNABINOID URINE SCREEN PRESUMPTIVE POSITIVE (NEGATIVE); ECSTASY MDMA SCREEN URINE NEGATIVE (NEGATIVE); METHADONE URINE SCREEN NEGATIVE (NEGATIVE); OPIATES URINE SCREEN NEGATIVE (NEGATIVE); PHENCYCLIDINE URINE SCREEN NEGATIVE (NEGATIVE)
[2024-02-02] VITALS: BP 139/61; PULSE 80; RESP 18; TEMP 36.78072; O2SAT 95
[2024-02-02 04:00] VITALS: BP 153/85; PULSE 67; RESP 18; TEMP 36.28068; O2SAT 100
[2024-02-02 08:00] VITALS: BP 144/71; PULSE 62; RESP 20; TEMP 36.78072; O2SAT 99
[2024-02-02 12:00] VITALS: BP 127/63; PULSE 68; RESP 20; TEMP 36.78072; O2SAT 97
[2024-02-02] MEDS ORDERED: SULF1TAB47 MT (13:00)
[2024-02-02 14:58] VITALS: BP 144/71; PULSE 71; TEMP 98.2; O2SAT 99
[2024-02-03] MEDS ORDERED: FAMOTIDINE 20MG/2ML VIAL IV SCH (09:00)
[2024-02-04 14:12] LABS: CHLAMYDIA TRACHOMATIS NAA Negative (Negative); NEISSERIA GONORRHOEAE NAA Negative (Negative)
== END 2024-02-02 15:55 | disposition home or self-care (01) | DRG 501 ==
LOC: ER 13:08 → EDBEDREQ 14:51 → 5WST 18:51 → EDBEDREQ 18:58 → 6WST 02-01 09:33
PROVIDERS: ADMIT Hospitalist; ATTEND Hospitalist
DX: N45.3 Epididymo-orchitis (principal); K56.609 Unspecified intestinal obstruction, unspecified as to partial versus complete obstruction; D72.829 Elevated white blood cell count, unspecified; F17.210 Nicotine dependence, cigarettes, uncomplicated; B37.9 Candidiasis, unspecified; F19.10 Other psychoactive substance abuse, uncomplicated; J31.2 Chronic pharyngitis; N43.2 Other hydrocele; I10 Essential (primary) hypertension; R13.10 Dysphagia, unspecified
CPT/HCPCS: 36415; 70491; 71045; 74176; 76870; 80048; 80061; 80076; 80305; 83605; 84145; 84439; 84443; 84481; 85025; 86850; 86900; 87491; 87591; 93005; 93976; 99285; J0696; J1650; J1885; J2270; J2470; J7030; Q9967

== ENCOUNTER 2024-02-11 23:31 | Emergency (ER) | payer OTHER ==
[~2024-02-11] VITALS: Ht 157.5 cm; Wt 55.0 kg
[~2024-02-11 23:31] MED LIST changes: -AMOX-424 MT; +SULF1TAB47 MT
[2024-02-11 23:54] VITALS: O2SAT 99
[2024-02-12] MEDS: DEXAMETHASONE 10 MG/ML VIAL IM ONE (02:45)
[2024-02-12 04:01] VITALS: BP 130/72; PULSE 70; RESP 18; TEMP 36.50292; O2SAT 97
== END 2024-02-12 04:03 | disposition home or self-care (01) ==
LOC: ER 23:31
DX: B34.9 Viral infection, unspecified (principal); F12.10 Cannabis abuse, uncomplicated; Z79.899 Other long term (current) drug therapy; Z79.52 Long term (current) use of systemic steroids
CPT/HCPCS: 99284; 71045; 87430; 87070; 96372; J1100